=== PATIENT | female | born 1990 | race Caucasian/White ===

== ENCOUNTER 2018-12-20 16:15 | Emergency (ER) | payer MEDICAID ==
[~2018-12-20] VITALS: Ht 162.6 cm; Wt 77.3 kg
[2018-12-20 17:11] LABS: COLLECTION METHOD CLEAN CATCH
[2018-12-20 17:15] LABS: BASO % 0.3 % (0.0-2.0); EOS # 0.1 (0.0-0.7); EOS % 0.7 % (0-4.0); GRAN # 8.2 (1.4-6.5); GRAN % 80.8 % (42.2-75.2); HEMOGLOBIN 12.4 g/dl (12.5-16.0); MEAN CELL VOLUME 93 fl (80.0-100.0); MEAN CORPUSCULAR HEMOGLOBIN 32 pg (27.0-31.0); MEAN CORPUSCULAR HGB CONC 34 g/dl (33.0-37.0); MEAN PLATELET VOLUME 9.3 fl (7.4-10.4); MONO # 0.7 (0.1-0.6); MONO % 7.2 % (1.7-9.3); PLATELET COUNT 146 K/mm3 (130-400); RED BLOOD COUNT 3.89 M/mm3 (4.10-5.30); REDCELL DISTRIBUTION WIDTH-CV 12.6 % (11.5-14.5)
--- NOTE | 2018-12-20 17:15 | NUR ---
RN to bedside in ER for FHR strip. Patient in ER for fever/congestion. Patient denies any concerns. Reports good movement, denies tightening/cramping/contractions, leaking of fluid, or vaginal bleeding. G3L1, 25.3wks gestation. FHR reassuring for gestational age. FHR baseline 165. Audible movement. on OB unit, reviews strip.
[2018-12-20 17:19] LABS: MUCOUS Present /lpf; PH 8 (5-8); SQUAMOUS EPITHELIAL 0-2 /hpf; URINE APPEARANCE Clear; URINE BACTERIA None Seen /hpf; URINE BILIRUBIN Negative (NEGATIVE); URINE BLOOD Negative (NEGATIVE); URINE COLOR Yellow; URINE GLUCOSE Negative (NEGATIVE); URINE KETONE Negative (NEGATIVE); URINE LEUKOCYTE ESTERASE Negative (NEGATIVE); URINE NITRATE Negative (NEGATIVE); URINE PROTEIN(semi-quant) Negative (NEGATIVE); URINE RBC 0-2 /hpf
[2018-12-20 17:26] LABS: ALBUMIN 3.5 gm/dL (3.5-5.0); BILIRUBIN,TOTAL 0.1 mg/dL (0.0-1.0); CALCIUM 8.5 mg/dL (8.4-10.2); CREATININE, serum 0.5 (0.52-1.25); POTASSIUM 3.8 mmol/L (3.4-5.0); TOTAL PROTEIN 6.7 gm/dL (6.4-8.2)
[2018-12-20 17:28] LABS: HEMATOCRIT 36.3 % (37.0-47.0)
[2018-12-20] MEDS ORDERED: PROAIR HFA0.09 MG/AC IH (18:52)
[2018-12-20 18:56] VITALS: BP 101/64; PULSE 102; TEMP 99.2
== END 2018-12-20 19:00 | disposition home or self-care (01) ==
LOC: COL.ER 16:15
PROVIDERS: Emergency Medicine
DX: B34.9 Viral infection, unspecified (principal); J45.909 Unspecified asthma, uncomplicated
CPT/HCPCS: J7030

== ENCOUNTER 2019-03-25 07:00 | Inpatient (IN) | payer MEDICAID ==
[2019-03-25] VITALS (33 sets, daily range): BP systolic 83–162; BP diastolic 50–79; PULSE 69–113; TEMP 97.5–97.9
[~2019-03-25] VITALS: Ht 165.1 cm; Wt 86.4 kg
[~2019-03-25 07:00] MED LIST: PROAIR HFA0.09 MG/AC IH
[2019-03-25] MEDS ORDERED: UNISOM25 MG PO (07:23)
[2019-03-25] MEDS ORDERED: ZYRTEC 10MG10 MG PO (07:23)
[2019-03-25] MEDS ORDERED: PRENATAL TABLET PO (07:24)
--- NOTE | 2019-03-25 07:45 | NUR ---
Patient to LDR6 with for induction of labor. Patient changed into gown, wedged to left side. EFMs explained and applied. FHR 140bpm and reactive. CTX q5-7 minutes per toco. Patient reports feelings the contractions but denies pain. VSS. Assessment completed, consents signed. IV started in right hand, labs drawn from site. LR infusing per protocol. Pitocin started at 2mu per orders and protocol. Plan of care reviewed with patient and spouse. Call light within reach.
[2019-03-25 08:08] LABS: BASO % 0.4 % (0.0-2.0); EOS # 0.4 (0.0-0.7); EOS % 3.4 % (0-4.0); GRAN # 7.2 (1.4-6.5); GRAN % 69.3 % (42.2-75.2); HEMATOCRIT 37.8 % (37.0-47.0); LYMPH % 18.7 % (20.0-51.0); MEAN CELL VOLUME 91 fl (80.0-100.0); MEAN CORPUSCULAR HEMOGLOBIN 31 pg (27.0-31.0); MEAN CORPUSCULAR HGB CONC 34 g/dl (33.0-37.0); MEAN PLATELET VOLUME 10.1 fl (7.4-10.4); MONO # 0.7 (0.1-0.6); MONO % 6.8 % (1.7-9.3); PLATELET COUNT 135 K/mm3 (130-400); RED BLOOD COUNT 4.17 M/mm3 (4.10-5.30); REDCELL DISTRIBUTION WIDTH-CV 13.2 % (11.5-14.5)
--- NOTE | 2019-03-25 08:50 | NUR ---
Dr. Stauffer to room, reviews FHR tracing, SVE with AROM, /-2 with moderate amount of clear fluid noted. Plan of care reviewed.
--- NOTE | 2019-03-25 11:30 | NUR ---
Patient more uncomfortable with contractions, breathing through them, request epidural. IVF bolus started. CHAIN PERSON notified.
--- NOTE | 2019-03-25 12:10 | NUR ---
1200 L.Gail, INTERNAL CONTROL SPECIALIST to room to place epidural. Patient sits upright on the side of the bed. Test dose administered at 1210. See anestesia record for details. 1215 Patient wedged to left side, plan of care reviewed.
--- NOTE | 2019-03-25 13:00 | NUR ---
Payne placed, SVE /-2. FHR with intermittent late/early/variable decelerations. Moderate variability throughout, accelerations noted. Dr. Stauffer called and updated. No new orders.
--- NOTE | 2019-03-25 14:37 | NUR ---
Early/late/variable FHR decelerations continue, 1415 FHR down to 90 bpm, SVE - complete. FHR remains at 80-90 bpm over 7 minutes. During this time patient turned to high right side then to high left side. IVF bolus started, pitocin turned off, and O2 on at 10L per mask. Dr. Stauffer called to come to the hospital at 1419. 1422 [address] Stauffer to room. Patient prepped for delivery and begins to push with contractions. 1437 Spontaneous vaginal delivery of viable female infant by Dr. Stauffer. Cord clamped and cut and infant to the care of the nursery RN. 1440 Spontaneous delivery of placenta by Dr. Stauffer. Pitocin infusing at 333ml/hr per orders and protocol. Fundus firms with massage, repair of 2nd degree laceration by Dr. Stauffer.
[2019-03-25] MEDS ORDERED: MOTRIN 800800 MG/TAB PO (15:28)
[2019-03-26 02:25] VITALS: BP 98/57; PULSE 79; TEMP 97.6
[2019-03-26 07:00] VITALS: BP 105/67; PULSE 87; TEMP 97.6
--- NOTE | 2019-03-26 09:17 | NUR ---
Initial visit; Patient thanked Ship'S Captain for offering congratulations and God's blessings for the of her daughter. Ship'S Captain thanked patient for choosing [facility].
[2019-03-26 16:36] VITALS: BP 109/63; PULSE 76; TEMP 97.6
[2019-03-26 18:50] VITALS: BP 100/59; PULSE 60; TEMP 97.5
[2019-03-27 08:45] VITALS: BP 102/67; PULSE 70; TEMP 97.6
== END 2019-03-27 13:25 | disposition home or self-care (01) | DRG 807 ==
LOC: OB 07:00 → LDR 07:00 → OB 09:45
PROVIDERS: ADMIT Obstetrics & Gynecology
PROC: 10E0XZZ Delivery of Products of Conception, External Approach (ICD-10-PCS; principal; 2019-03-25)
PROC: 0KQM0ZZ Repair Perineum Muscle, Open Approach (ICD-10-PCS; 2019-03-25)
PROC: 10907ZC Drainage of Amniotic Fluid, Therapeutic from Products of Conception, Via Natural or Artificial Opening (ICD-10-PCS; 2019-03-25)
PROC: 3E033VJ Introduction of Other Hormone into Peripheral Vein, Percutaneous Approach (ICD-10-PCS; 2019-03-25)
DX: O99.52 Diseases of the respiratory system complicating childbirth (principal); Z37.0 Single live birth; Z3A.39 39 weeks gestation of pregnancy; O70.1 Second degree perineal laceration during delivery; O69.81X0 Labor and delivery complicated by cord around neck, without compression, not applicable or unspecified; J45.909 Unspecified asthma, uncomplicated; O76 Abnormality in fetal heart rate and rhythm complicating labor and delivery
CPT/HCPCS: J2590; J7120